=== PATIENT | male | born 1975 | race Caucasian/White ===

== ENCOUNTER → 2018-12-13 15:05 | Outpatient (CLI) | payer OTHER, SELFPAY ==
--- NOTE | 2018-12-13 | DI.RAD.S_ITS ---
PROCEDURE: XR FOOT RT MIN 3V INDICATIONS: RT FOOT PAIN TECHNIQUE: 3 views of the foot were acquired. COMPARISON: None. FINDINGS: Bones: No fractures or dislocations. No suspicious bony lesions. Mild first MTP joint degeneration. Soft tissues: No tibiotalar joint effusion. Achilles tendon appears normal. IMPRESSION: No fracture. Mild degenerative changes as above. If the patient's pain or other symptoms persist, consider further evaluation with MRI Dictated by: Too Win M.D. on 12/13/2018 at 15:49 Approved by: Too Win M.D. on 12/13/2018 at 15:57
== END ==
PROVIDERS: Visit Provider Physician Assistant Medical
DX: M25.571 Pain in right ankle and joints of right foot (principal); M19.071 Primary osteoarthritis, right ankle and foot
CPT/HCPCS: 73630

== ENCOUNTER 2023-10-16 15:13 | Emergency (ER) | payer OTHER, SELFPAY ==
[2023-10-16 15:18] VITALS: BP 150/90; PULSE 77; RESP 16; TEMP 36.8; O2SAT 99; BMI 23.0
--- NOTE | 2023-10-16 15:22 | DI.RAD.S_ITS ---
PROCEDURE: XR CHEST 1V INDICATIONS: chest pain TECHNIQUE: One view of the chest was acquired. COMPARISON: [facility], , CHEST 2 VIEW, 07/22/2017, 10:04. FINDINGS: Surgical changes and devices: None. Lungs and pleura: Hyperinflation suggesting COPD. Lungs are clear. No pleural effusions or pneumothorax. Mediastinum: Mediastinal contours appear normal. Heart size is normal. Bones and chest wall: No suspicious bony lesions. Overlying soft tissues appear unremarkable. IMPRESSION: No acute cardiopulmonary abnormality is seen. Dictated by: Sim Ribeiro M.D. on 10/16/2023 at 17:19 Approved by: Sim Ribeiro M.D. on 10/16/2023 at 17:20
[2023-10-16 15:35] VITALS: PULSE 83; RESP 15; O2SAT 95
[2023-10-16] MEDS: ASPIRIN 81 MG CHEW TAB 324 MG PO (15:40)
[2023-10-16 15:44] VITALS: BP 129/74; PULSE 80; RESP 16; O2SAT 97
[2023-10-16 15:45] LABS: Prothrombin Time 11.8 SECONDS (9.4-12.5)
[2023-10-16 15:48] LABS: PTT Partial Thromboplastin Tim 38 SECONDS (25.1-36.5)
[2023-10-16 15:49] LABS: Add Manual Diff / Slide Review NO; Alanine Aminotransferase 36 IU/L (<50); Albumin 4.7 g/dL (3.5-5.0); Albumin Globulin Ratio 1.3 (1.0-2.8); Alkaline Phosphatase 61 U/L (38-126); Aspartate Aminotransferase 31 IU/L (17-59); BUN Creatinine Ratio 15.2 (6-22); Basophils Absolute Auto 100 /uL (0-100); Basophils Percent Auto 0.9 % (0-2); Bilirubin Total 0.5 mg/dL (0.2-1.3); Blood Urea Nitrogen 16 mg/dL (9-20); Calcium 9.4 mg/dL (8.4-10.2); Carbon Dioxide 29 mmol/L (22-32); Chloride 101 mmol/L (98-107); Creatine Kinase 78 U/L (55-170); Eosinophils Absolute Auto 200 /uL (0-450); Eosinophils Percent Auto 2.1 % (2-4); Estimated Glomerular Filt Rate > 60 mL/min (>60); Globulin 3.6 g/dL (1.7-4.1); Glucose 118 mg/dL (70-100); HEMOLYSIS 21 (0-50); Hematocrit 44.5 % (41-53); Hemoglobin 15.1 g/dL (13.5-17.5); Lipase 46 U/L (23-300); Lymphocytes Absolute Auto 1700 /uL (1100-4500); Lymphocytes Percent Auto 23.8 % (25-40); Mean Corpuscular HGB Conc 34.1 % (30-36); Mean Corpuscular Hemoglobin 31.6 PG (26-34); Mean Corpuscular Volume 92.7 fL (80-100); Monocytes Absolute Auto 700 /uL (0-900); Monocytes Percent Auto 9.8 % (3-14); Neutrophils Absolute Auto 4600 /uL (1500-7000); Neutrophils Percent Auto 63.4 % (50-75); Platelet Count 278 X10^3/uL (150-400); Potassium 3.9 mmol/L (3.4-5.1); Red Blood Cell Count 4.79 X10^6/uL (4.5-5.9); Red Cell Distribution Width 13.2 % (11.6-14.8); Sodium 138 mmol/L (137-145); Total Protein 8.3 g/dL (6.3-8.2); White Blood Cell Count 7.3 X10^3/uL (4.5-11.0)
[2023-10-16 16:00] VITALS: PULSE 68; RESP 18; O2SAT 100
[2023-10-16 16:01] LABS: Troponin I < 0.012 ng/mL (0.01-0.034)
[2023-10-16 16:30] VITALS: PULSE 72; RESP 12; O2SAT 100
--- NOTE | 2023-10-16 16:33 | ED_ITS ---
HPI - Chest Pain General Chief Complaint: Chest Pain Stated Complaint: palpitations, sob, chst pain Time Seen by Provider: 10/16/23 16:09 Source: patient Mode of arrival: Ambulatory History of Present Illness HPI narrative: Patient is a 48-year-old male who is otherwise healthy he was here for evaluation of several months/years of progressively worsening and more frequent and more intense palpitations. He has not having chest pain. No shortness of breath. No lightheadedness. He is never passed out. It has never caused him to have exercise intolerance. Several years ago he wore a Holter monitor for 24 hours but that was because his primary provider? heard something? that was abnormal with his heart. There was no definitive diagnosis made. He states that today the symptoms just seemed to be more pronounced. He has not having them at the time of my evaluation. Related Data Allergies Allergy/AdvReac Type Severity Reaction Status Date / Time No Known Drug Allergies Allergy Verified 10/16/23 15:39 Review of Systems Constitutional Constitutional: Reports system reviewed and no additional complaints, except as documented Cardiovascular Cardiovascular: Reports system reviewed and no additional complaints, except as documented Respiratory Respiratory: Reports system reviewed and no additional complaints, except as documented Integumentary/Breasts Skin/Breast: Reports system reviewed and no additional complaints, except as documented Hematologic/Lymphatic On Anticoagulants: No Patient History Social History Smoking Status: Former smoker Smoking Status: Former smoker Exam Initial Vital Signs Initial Vital Signs: Vital Signs Temperature 98.3 F 10/16/23 15:18 Pulse Rate 77 10/16/23 15:18 Respiratory Rate 16 10/16/23 15:18 Blood Pressure 150/90 H 10/16/23 15:18 Pulse Oximetry 99 10/16/23 15:18 Oxygen Delivery Method Room Air 10/16/23 15:18 HENMT Head: normal to inspection and normocephalic Resp Effort & Inspection: normal respiratory effort Auscultation: clear to auscultation bilaterally Cardio Rate: regular rate Rhythm: regular rhythm Skin General: no rashes or lesions noted Neuro General: patient alert, patient awake, patient oriented x3 and moves all extremities Extrem General: normal to inspection and capillary refill normal Course Orders Ordered: ED Orders 10/16/23 15:22 XR chest 1V Stat 10/16/23 15:25 Complete Blood Count AUTO DIFF Stat Comprehensive Metabolic Panel Stat Lipase Stat Magnesium Stat PTT Partial Thromboplastin Jose Stat Prothrombin Time INR Stat Troponin & CK Cardiac Panel Stat 10/16/23 15:28 EKG-12 Lead Stat Discontinued Medications Aspirin (Aspirin 81 Mg Chew Tab) 324 mg PO NOW ONE Stop: 10/16/23 15:23 Last Admin: 10/16/23 15:40 Dose: 324 mg Documented By: RB Vital Signs Vital signs: Vital Signs - 8 hr 10/16/23 15:18 10/16/23 15:35 10/16/23 15:44 Temperature 98.3 F Pulse Rate 77 83 Respiratory Rate 16 15 Blood Pressure 150/90 H 129/74 Pulse Oximetry 99 95 Oxygen Delivery Method Room Air 10/16/23 15:44 10/16/23 16:00 10/16/23 16:30 Temperature Pulse Rate 80 68 72 Respiratory Rate 16 18 12 Blood Pressure Pulse Oximetry 97 100 100 Oxygen Delivery Method MDM - Chest Pain Lab Data Attestation: I reviewed the patient's lab results. 10/16/23 15:25 10/16/23 15:25 Labs: Lab Results 10/16/23 Range/Units 15:25 WBC 7.3 (4.5-11.0) X10^3/uL RBC 4.79 (4.5-5.9) X10^6/uL Hgb 15.1 (13.5-17.5) g/dL Hct 44.5 (41-53) % MCV 92.7 (80-100) fL MCH 31.6 (26-34) PG MCHC 34.1 (30-36) % RDW 13.2 (11.6-14.8) % Plt Count 278 (150-400) X10^3/uL Neut % (Auto) 63.4 (50-75) % Lymph % (Auto) 23.8 L (25-40) % [place] % (Auto) 9.8 (3-14) % Eos % (Auto) 2.1 (2-4) % Baso % (Auto) 0.9 (0-2) % Neut # (Auto) 4600 (3378-5117) /uL Lymph # (Auto) 1700 (8660-3369) /uL [place] # (Auto) 700 (0-900) /uL Eos # (Auto) 200 (0-450) /uL Baso # (Auto) 100 (0-100) /uL PT 11.8 (9.4-12.5) SECONDS INR 1.0 (0.9-1.3) APTT 38 H (25.1-36.5) SECONDS Sodium 138 (137-145) mmol/L Potassium 3.9 (3.4-5.1) mmol/L Chloride 101 (98-107) mmol/L Carbon Dioxide 29 (22-32) mmol/L BUN 16 (9-20) mg/dL Creatinine 1.05 (0.66-1.25) mg/dL Estimated GFR > 60 (>60) mL/min BUN/Creatinine Ratio 15.2 (6-22) Glucose 118 H (70-100) mg/dL Calcium 9.4 (8.4-10.2) mg/dL Magnesium 2.0 (1.6-2.3) mg/dL Total Bilirubin 0.5 (0.2-1.3) mg/dL AST 31 (17-59) IU/L ALT 36 (<50) IU/L Alkaline Phosphatase 61 (38-126) U/L Total Creatine Kinase 78 (55-170) U/L Troponin I < 0.012 (0.01-0.034) ng/mL Total Protein 8.3 H (6.3-8.2) g/dL Albumin 4.7 (3.5-5.0) g/dL Globulin 3.6 (1.7-4.1) g/dL Albumin/Globulin Ratio 1.3 (1.0-2.8) Lipase 46 (23-300) U/L ECG Data Attestation: I personally reviewed and interpreted this ECG as follows: Interpretation: Sinus rhythm Ventricular rate is 75 Normal axis Normal QRS Normal QTC No ST T wave changes MDM Narrative Medical decision making narrative: Patient is sinus rhythm here in the ER. He is asymptomatic. Labs unremarkable. EKG is unremarkable. After discussing his symptoms it sounds like he is having frequent PVCs. He understands he does need a Holter monitor for definitive diagnosis. No indication for admission to the hospital. No indication to start any medications. Advised that he talk with his primary doctor about a Holter monitor. He was given return precautions. He expressed understanding and agreement. Discharge Plan Departure Patient Disposition: Home Clinical Impression: Palpitations Instructions: DI for Palpitations Activity Restrictions/Additional Instructions: I do recommend that you make contact with the primary care provider as the next step in the workup of your palpitations would be a Holter monitor. You can contact the search engine optimization manager of the number provided below for follow-up as well. Return to the emergency department for new or worsening symptoms. Referrals: Miscellaneous,MD Michela [Primary Care Provider] - Yi Milner MD [Physician] - Stand Alone Forms: Patient Portal/API
== END 2023-10-16 16:48 | disposition home or self-care (01) ==
PROVIDERS: Emergency Provider Emergency Medicine
DX: R00.2 Palpitations (principal); R07.9 Chest pain, unspecified
CPT/HCPCS: 36415; 71045; 80053; 82550; 83690; 83735; 84484; 85025; 85610; 85730; 93005; 99284